=== PATIENT | female | born 1990 | race African-American/Black ===

== ENCOUNTER 2019-03-27 11:15 | Emergency (ER) | payer MEDICAID ==
[~2019-03-27] VITALS: Ht 177.8 cm; Wt 120.0 kg
[2019-03-27 12:38] LABS: EOSINOPHILS % 0.8 % (0.0-5.0); HEMATOCRIT. 34.5 % (36.0-48.0); HEMOGLOBIN. 11.5 g/dL (12.0-16.0); LYMPHOCYTES % 24.3 % (20.0-50.0); MEAN CORPUSCULAR HEMOGLOBIN 29.1 pg (28.0-32.0); MEAN PLATELET VOLUME 9.8 fl (7.4-10.4); MONOCYTES % 11.3 % (2.0-8.0); NEUTROPHILS % 62.6 % (40.0-76.0); PLATELET 240 x1000/uL (130-400); RED BLOOD CELL COUNT 3.96 mill/uL (4.2-5.4); RED CELL DISTRIBUTION WIDTH 15.9 % (11.6-14.6)
[2019-03-27 12:49] LABS: CHLORIDE 108 mEq/L (98-107)
[2019-03-27 12:54] LABS: ETHANOL BLOOD < 10 mg/dL; HCG SCREEN POSITIVE
[2019-03-27 14:09] LABS: CLARITY URINE CLEAR (CLEAR); COLOR URINE DARK YELLOW (YELLOW); KETONES URINE 1+ (NEGATIVE); LEUKOCYTE ESTERASE URINE NEGATIVE (NEGATIVE); NITRITE URINE NEGATIVE (NEGATIVE); OCCULT BLOOD URINE NEGATIVE (NEGATIVE); PH URINE 5.5 (4.5-8.0); PROTEIN URINE TRACE (NEGATIVE); SPECIFIC GRAVITY URINE 1.033 (1.005-1.030); UROBILINOGEN URINE 0.2 E.U./dL (0.2-1.0)
[2019-03-27] MEDS ORDERED: POTASSIUM CHLORIDE 20MEQ TABLET SR PO ONE (14:15)
[2019-03-27 14:21] LABS: *AMPHETAMINES SCREEN URINE NEGATIVE (NEGATIVE); *BARBITURATES SCREEN URINE NEGATIVE (NEGATIVE); *BENZODIAZEPINES SCREEN URINE NEGATIVE (NEGATIVE); *COCAINE SCREEN URINE NEGATIVE (NEGATIVE); METHADONE URINE SCREEN NEGATIVE (NEGATIVE); OPIATES URINE SCREEN NEGATIVE (NEGATIVE); PHENCYCLIDINE URINE SCREEN NEGATIVE (NEGATIVE)
[2019-03-27 14:29] LABS: CANNABINOID URINE SCREEN PRESUMTIVE POSITIVE (NEGATIVE)
[2019-03-27] MEDS ORDERED: CEFTRIAXONE 1 G PREMIX 50 ML IV ONE (18:15)
[2019-03-27] MEDS ORDERED: DIPHENHYDRAMINE 50MG/ML VIAL IM ONE (23:30)
[2019-03-27] MEDS ORDERED: LORAZEPAM 2MG/ML CPJ IM ONE (23:30)
[2019-03-28] MEDS ORDERED: CEFTRIAXONE SODIUM 500 MG/VIAL IM ONE (00:45)
[2019-03-28] MEDS ORDERED: CEFTRIAXONE 1 G PREMIX 50 ML IV ONE (00:45)
[2019-03-28] MEDS ORDERED: LIDOCAINE HCL 1% 20ML VIAL (Pyxis) INJ INFIL ONE (01:00)
[2019-03-28] MEDS ORDERED: LORAZEPAM 2MG/ML CPJ IM STA (11:24)
[2019-04-02] MEDS ORDERED: ACETAMINOPHEN 325MG TABLET PO ONE (17:45)
[2019-04-04] MEDS ORDERED: ACETAMINOPHEN 325MG TABLET PO PRN (22:45)
[2019-04-05 10:34] VITALS: BP 115/63
== END 2019-04-05 10:55 ==
LOC: EDBD 11:15 → ER 11:15
DX: O99.341 Other mental disorders complicating pregnancy, first trimester (principal); F28 Other psychotic disorder not due to a substance or known physiological condition; O23.41 Unspecified infection of urinary tract in pregnancy, first trimester; O26.891 Other specified pregnancy related conditions, first trimester; R47.01 Aphasia; Z3A.01 Less than 8 weeks gestation of pregnancy; Z75.1 Person awaiting admission to adequate facility elsewhere; Z59.0 Homelessness
CPT/HCPCS: 36415; 70450; 76801; 76817; 80053; 80305; 80307; 80320; 80329; 81003; 81025; 82962; 84443; 84702; 84703; 85025; 86850; 86900; 86901; 96372; 99285; J0696; J1200; J2060; J3490; Z7610; G0480